=== PATIENT | male | born 1980 | race Caucasian/White ===

== ENCOUNTER 2019-07-28 10:19 | Emergency (ER) | payer BC, OTHER ==
[~2019-07-28] VITALS: Ht 182.9 cm; Wt 129.3 kg
[2019-07-28] MEDS ORDERED: CHLORTHALIDONE25 MG PO (10:35)
[2019-07-28] MEDS ORDERED: NORVASC10 MG PO (10:35)
[2019-07-28] MEDS ORDERED: PRINIVIL20 M1 PO (10:35)
[2019-07-28] MEDS ORDERED: MULTIVITAMINS PO (10:36)
[2019-07-28] MEDS ORDERED: KLOR-CON 1010 MEQ PO (10:36)
[2019-07-28] MEDS ORDERED: ASPIR 8181 MG PO (10:37)
[2019-07-28] MEDS ORDERED: B12INJ PO (10:37)
[2019-07-28] MEDS ORDERED: NORCO 5-325 TA1 EAC1 PO (11:40)
[2019-07-28 11:51] VITALS: BP 120/69
== END 2019-07-28 11:58 | disposition home or self-care (01) ==
LOC: ER 10:19 → EDBD 10:19 → ER 11:58
DX: S82.892A Other fracture of left lower leg, initial encounter for closed fracture (principal); I10 Essential (primary) hypertension; Z87.442 Personal history of urinary calculi; X58.XXXA Exposure to other specified factors, initial encounter; Y93.89 Activity, other specified; Y92.89 Other specified places as the place of occurrence of the external cause; Y99.8 Other external cause status